=== PATIENT | female | born 1965 | race Caucasian/White ===

== ENCOUNTER 2019-01-22 16:19 | Emergency (ER) | payer MEDICAID, OTHER ==
[~2019-01-22] VITALS: Wt 60.0 kg
--- NOTE | 2019-01-22 18:32 | ERD ---
ER Documentation Chief Complaint Chief Complaint c/o right sided pelvic pain with "mild" dusuria x2 days HPI 53-year-old female, presents to the emergency department, complaining of right pelvic pain, associated with dysuria for 2 days. The pain is sharp, 5/10. The patient denies fever, no chills, no nausea or vomiting. ROS All systems reviewed and are negative except as per history of present illness. Medications Home Meds Active Scripts Ibuprofen* (Motrin*) 400 Mg Tab, 400 MG PO Q6H PRN for PAIN AND OR ELEVATED TEMP, #30 TAB Prov:MARCSU BASURTO MD 01/22/19 Allergies Allergies: Coded Allergies: No Known Allergy (Unverified , 11/04/18) PMhx/Soc History of Surgery: Yes ( X 1) Anesthesia Reaction: No Hx Neurological Disorder: No Hx Respiratory Disorders: No Hx Cardiac Disorders: Yes (HTN;HIGH CHOLESTEROL;) Hx Psychiatric Problems: No Hx Miscellaneous Medical Probl: No Hx Alcohol Use: No Hx Substance Use: No Hx Tobacco Use: No Smoking Status: Never smoker FmHx Family History: diabetes; No coronary disease Physical Exam Vitals Vital Signs Date Temp Pulse Resp B/P (MAP) Pulse Ox O2 O2 Flow FiO2 Time Delivery Rate 01/22/19 98.7 63 18 145/76 100 Room Air 20:10 (99) 01/22/19 98.0 80 20 129/68 98 16:24 (88) Physical Exam Const: No acute distress Head: Atraumatic Eyes: Normal Conjunctiva ENT: Normal External Ears, Nose and Mouth. Neck: Full range of motion. No meningismus. Resp: Clear to auscultation bilaterally Cardio: Regular rate and rhythm, no murmurs Abd: Soft, mild diffuse tenderness to deep palpation, no peritoneal signs, non distended. Normal bowel sounds Skin: No petechiae or rashes Back: No midline or flank tenderness Ext: No cyanosis, or edema Neur: Awake and alert Psych: Normal Mood and Affect Result Diagram: 01/22/19184601/22/191846 Results 24 hrs Laboratory Tests Test 01/22/19 18:47 01/22/19 18:50 White Blood Count 7.4 10^3/ul Red Blood Count 4.48 10^6/ul Hemoglobin 12.9 g/dl Hematocrit 40.5 % Mean Corpuscular Volume 90.4 fl Mean Corpuscular Hemoglobin 28.8 pg Mean Corpuscular Hemoglobin Concent 31.9 g/dl Red Cell Distribution Width 14.1 % Platelet Count 344 10^3/UL Mean Platelet Volume 10.5 fl Immature Granulocytes % 0.300 % Neutrophils % 49.9 % Lymphocytes % 40.4 % Monocytes % 6.7 % Eosinophils % 2.0 % Basophils % 0.7 % Nucleated Red Blood Cells % 0.0 /100WBC Immature Granulocytes # 0.020 10^3/ul Neutrophils # 3.7 10^3/ul Lymphocytes # 3.0 10^3/ul Monocytes # 0.5 10^3/ul Eosinophils # 0.2 10^3/ul Basophils # 0.1 10^3/ul Nucleated Red Blood Cells # 0.0 10^3/ul Sodium Level 146 mmol/L Potassium Level 3.6 mmol/L Chloride Level 110 mmol/L Carbon Dioxide Level 26 mmol/L Anion Gap 10 Blood Urea Nitrogen 14 mg/dl Creatinine 0.72 mg/dl Est Glomerular Filtrat Rate mL/min > 60 mL/min Glucose Level 106 mg/dl Calcium Level 9.7 mg/dl Bedside Urine pH (LAB) 5.5 Bedside Urine Protein (LAB) Negative Bedside Urine Glucose (UA) Negative Bedside Urine Ketones (LAB) Negative Bedside Urine Blood Negative Bedside Urine Nitrite (LAB) Negative Bedside Urine Leukocyte Esterase (L Negative POC Beta HCG, Qualitative NEGATIVE YOUSUF : 1965 Age: 53 Sex: F MR #: [id number] DOS: 01/22/19 1837 Ordering MD: MARCUS BASURTO MD Location: [facility] Room/Bed: PROCEDURE: CT Abdomen and Pelvis without contrast. CLINICAL INDICATION: Abdominal pain TECHNIQUE: CT of the abdomen and pelvis without IV contrast. Coronal and sagittal reformatted images. DICOM images are available. One or more of the following dose reduction techniques were used: automated exposure control, adjustment of the mA and/or kV according to patient size, use of iterative reconstruction technique. CTDI 9.5 mGy, DLP 538 mGy-cm. COMPARISON: None. FINDINGS: Lower thorax: Normal Liver: Severe steatosis. Biliary: Cholelithiasis, without evidence for cholecystitis. No biliary dilatation. Pancreas: Normal Spleen: Normal Adrenal glands: Normal Genitourinary: No hydronephrosis or urinary calculi. Unremarkable urinary bladder. Vascular: No abdominal aortic aneurysm. Lymph nodes: No lymphadenopathy. Gastrointestinal: No bowel obstruction. Normal appendix. No diverticulosis, diverticulitis or colitis. Peritoneum: Small fat-containing umbilical hernia, without incarceration. No free air, free fluid or abscess. Reproductive organs: Status post hysterectomy. Musculoskeletal: Unremarkable. IMPRESSION: 1. Severe hepatic steatosis. 2. Cholelithiasis, without evidence for cholecystitis. 3. Small fat-containing umbilical hernia, without incarceration. 4. Status post hysterectomy. 5. No evidence of bowel obstruction, mass, lymphadenopathy, or acute inflammatory process. Procedures/MDM Vital signs stable. Differential diagnosis include but not limited to: UTI, colitis, gastroenteritis, kidney stones, irritable bowel syndrome, inflammatory bowel syndrome, malabsorption syndrome, cholelithiasis, food intolerance, medication side effect, pancreatitis, diverticulitis, bowel obstruction. Physical examination and clinical presentation consistent most likely with pelvic pain and cholelithiasis, low suspicion for acute abdomen. During the ED course the patient remained stable, no new complaints. Treatment options, exam results and clinical impression discussed with the patient who agrees with management. The patient is stable to be treated outpatient and will be discharged home; some side effects of prescribed medications (headache, rash, nausea, vomiting, diarrhea, drowsiness, habituation, bleeding, hypertension, interactions with other medications) were reviewed. The patient was informed that the evaluation in the emergency department has been done to rule out an acute emergency, therefore, chronic conditions like malignancy or other diseases have not been evaluated; therefore, the patient was instructed to follow up with the primary care provider in the next 48h. If symptoms persist, worsen or new symptoms develop, then patient should return to the ED immediately. Instructions explained and given directly by me to the patient with acknowledgment and demonstrated understanding. Disclaimer: Inadvertent spelling and grammatical errors are likely due to EHR/dictation software use and do not reflect on the overall quality of patient care. Also, please note that the electronic time recorded on this note does not necessarily reflect the actual time of the patient encounter. Departure Diagnosis: Primary Impression: Acute pain in female pelvis Additional Impression: Cholelithiasis Condition: Stable Additional Instructions: Ankitas lydia por [facility] para yang servicio. Esperamos que en yang visita a la pedro de emergencia yang problema medico haya sido solucionado y que se sienta mucho mejor. Para estar seguros que yang mejoria sigue en proceso, le pedimos el favor de hacer rachel eboni de seguimiento medico con yang doctor primario en los proximos 2-4 rosenthal. Lleve con usted estos documentos y las medicinas recetadas. Si mikie sintomas empeoran, NO SE ESPERE, por favor regrese a pedro de emergencia INMEDIATAMENTE. En bethanie que usted no tenga un mdico de atencin primaria: Llame al mdico o clnica comunitaria de referencia que aparece abajo yaneli las horas de consultorio para hacer rachel eboni para que le vean. CLINICAS: [facility] [phone] [facility] [phone] [facility] [phone] [facility] [phone] [facility]. [place] [id number] [phone] [facility] [phone] We have 20 minutes of having MARCUS BASURTO MD Jan 22, 2019 18:32
[2019-01-22] MEDS ORDERED: IBUP-1561 PO (19:43)
[2019-01-22 20:10] VITALS: BP 145/76; PULSE 63; RESP 18
== END 2019-01-22 20:11 | disposition home or self-care (01) ==
LOC: FTE 16:19
DX: R10.2 Pelvic and perineal pain (principal); I10 Essential (primary) hypertension
CPT/HCPCS: 36415; 74176; 80048; 81003; 81025; 85025; Z7502